=== PATIENT | male | born 1975 | race African-American/Black ===

== ENCOUNTER 2016-07-24 10:46 | Emergency (ER) | payer BC ==
[~2016-07-24] VITALS: Ht 190.5 cm; Wt 113.6 kg
[~2016-07-24 10:46] MED LIST: ALBUTEROL0.83 MG/ML IH; DULERA1 ARO IH; LORTAB 5/500 501 TAB PO; NO HOME MEDICATIONS; NORCO 325 MG-51 TAB PO; PREDNISONE10 MG PO; PREDNISONE20 MG PO; PROAIR HFA0.09 MG/AC IH; PROMETHAZINE12.5 M5 PO; PROVENTIL0.09 MG/A1 IH; ZITHROMAX 250M250 MG PO
[2016-07-24 10:48] VITALS: TEMP 97.9
[2016-07-24] MEDS ORDERED: IMITREX 5MGNAS NS (11:55)
[2016-07-24] MEDS ORDERED: VERELAN PM100 MG PO (11:55)
[2016-07-24 14:45] VITALS: BP 124/73; PULSE 62
== END 2016-07-24 14:47 | disposition home or self-care (01) ==
LOC: COL.ER 10:46
DX: G44.009 Cluster headache syndrome, unspecified, not intractable (principal)
CPT/HCPCS: J1100; J1170; J1200; J2550; J3030; J7030

== ENCOUNTER 2016-07-25 23:31 | Emergency (ER) | payer BC ==
[~2016-07-25] VITALS: Ht 190.5 cm; Wt 115.9 kg
[~2016-07-25 23:31] MED LIST changes: +IMITREX 5MGNAS NS; +VERELAN PM100 MG PO
[2016-07-25 23:34] VITALS: TEMP 97.5
[2016-07-26] MEDS ORDERED: FIORICET 325 MG1 TA1 PO (02:31)
[2016-07-26 03:00] VITALS: BP 117/87; PULSE 55
== END 2016-07-26 03:07 | disposition home or self-care (01) ==
LOC: COL.ER 23:31
DX: R51 Headache (principal); R11.2 Nausea with vomiting, unspecified
CPT/HCPCS: J1170; J1200; J2405; J2765; J3030; J7030

== ENCOUNTER 2016-08-04 06:24 | Emergency (ER) | payer BC ==
[~2016-08-04] VITALS: Ht 190.5 cm; Wt 120.0 kg
[~2016-08-04 06:24] MED LIST changes: +FIORICET 325 MG1 TA1 PO
[2016-08-04] MEDS ORDERED: VERELAN240 MG PO (06:33)
[2016-08-04 07:51] LABS: BASO % 0.2 % (0.0-2.0); EOS % 0.2 % (0-4.0); GRAN # 14.5 (1.4-6.5); GRAN % 87.1 % (42.2-75.2); HEMATOCRIT 42.2 % (42.0-52.0); HEMOGLOBIN 13.4 g/dl (13.5-18.0); LYMPH # 1.5 (1.2-3.4); LYMPH % 8.9 % (20.0-51.0); MEAN CELL VOLUME 85 fl (80.0-100.0); MEAN CORPUSCULAR HEMOGLOBIN 27 pg (27.0-31.0); MEAN CORPUSCULAR HGB CONC 32 g/dl (33.0-37.0); MEAN PLATELET VOLUME 10.8 fl (7.4-10.4); MONO # 0.5 (0.1-0.6); MONO % 3.2 % (1.7-9.3); PLATELET COUNT 212 K/mm3 (130-400); RED BLOOD COUNT 4.97 M/mm3 (4.20-5.60); REDCELL DISTRIBUTION WIDTH-CV 13.5 % (11.5-14.5); WHITE BLOOD COUNT 16.7 K/mm3 (4.8-10.8)
[2016-08-04 08:07] LABS: CALCIUM 10.1 mg/dL (8.4-10.2); CREATININE, serum 1.02 mg/dL (0.66-1.25); POTASSIUM 4.3 mmol/L (3.4-5.0)
[2016-08-04] MEDS ORDERED: FIORICET 325 MG1 TA1 PO (08:57)
[2016-08-04 09:14] VITALS: BP 108/73; PULSE 53
== END 2016-08-04 09:15 | disposition home or self-care (01) ==
LOC: COL.ER 06:24
PROVIDERS: Physician Assistant
DX: G44.001 Cluster headache syndrome, unspecified, intractable (principal); G43.819 Other migraine, intractable, without status migrainosus; F17.210 Nicotine dependence, cigarettes, uncomplicated
CPT/HCPCS: J2300; J2405; J2765; J3030; J7030

== ENCOUNTER 2016-12-04 18:02 | Emergency (ER) | payer BC ==
[~2016-12-04] VITALS: Ht 190.5 cm; Wt 113.6 kg
[~2016-12-04 18:02] MED LIST changes: +VERELAN240 MG PO
[2016-12-04 18:04] VITALS: BP 133/75; TEMP 97.5
[2016-12-04 18:41] LABS: BASO % 0.3 % (0.0-2.0); EOS # 0.5 (0.0-0.7); EOS % 3.8 % (0-4.0); GRAN # 8.7 (1.4-6.5); GRAN % 69.8 % (42.2-75.2); HEMATOCRIT 41.9 % (42.0-52.0); HEMOGLOBIN 13.3 g/dl (13.5-18.0); LYMPH # 1.9 (1.2-3.4); LYMPH % 15.1 % (20.0-51.0); MEAN CELL VOLUME 85 fl (80.0-100.0); MEAN CORPUSCULAR HEMOGLOBIN 27 pg (27.0-31.0); MEAN CORPUSCULAR HGB CONC 32 g/dl (33.0-37.0); MEAN PLATELET VOLUME 10.4 fl (7.4-10.4); MONO # 1.3 (0.1-0.6); MONO % 10.7 % (1.7-9.3); PLATELET COUNT 211 K/mm3 (130-400); RED BLOOD COUNT 4.92 M/mm3 (4.20-5.60); REDCELL DISTRIBUTION WIDTH-CV 13.1 % (11.5-14.5); WHITE BLOOD COUNT 12.5 K/mm3 (4.8-10.8)
[2016-12-04 19:54] LABS: ADJUSTED CALCIUM 9.3 mg/dL (8.4-10.2); ALBUMIN 4.1 gm/dL (3.5-5.0); BILIRUBIN,TOTAL 0.7 mg/dL (0.0-1.0); CALCIUM 9.4 mg/dL (8.4-10.2); CREATININE, serum 1.04 mg/dL (0.66-1.25); TOTAL PROTEIN 7.4 gm/dL (6.4-8.2)
[2016-12-04] MEDS ORDERED: PREDNISONE20 MG PO (20:17)
[2016-12-04 20:35] VITALS: PULSE 86
== END 2016-12-04 20:35 | disposition home or self-care (01) ==
LOC: COL.ER 18:02
PROVIDERS: Family Medicine
DX: J45.901 Unspecified asthma with (acute) exacerbation (principal)
CPT/HCPCS: J7512

== ENCOUNTER 2016-12-19 18:25 | Emergency (ER) | payer BC ==
[~2016-12-19] VITALS: Ht 190.5 cm; Wt 115.9 kg
[2016-12-19 18:27] VITALS: BP 146/86; PULSE 80; TEMP 97.6
== END 2016-12-19 20:07 | disposition home or self-care (01) ==
LOC: COL.ER 18:25
DX: J45.909 Unspecified asthma, uncomplicated (principal); F17.210 Nicotine dependence, cigarettes, uncomplicated
CPT/HCPCS: J1100

== ENCOUNTER 2017-04-08 12:44 | Emergency (ER) | payer BC ==
[~2017-04-08] VITALS: Ht 190.5 cm; Wt 113.6 kg
[2017-04-08 12:47] VITALS: BP 134/78; PULSE 60; TEMP 98
== END 2017-04-08 13:32 | disposition left against medical advice (07) ==
LOC: COL.ER 12:44
DX: M25.511 Pain in right shoulder (principal)

== ENCOUNTER 2017-04-10 09:16 | Emergency (ER) | payer BC ==
[~2017-04-10] VITALS: Ht 190.5 cm; Wt 113.6 kg
[2017-04-10 09:19] VITALS: BP 141/91; TEMP 98.2
[2017-04-10] MEDS ORDERED: ZANAFLEX CAPSULE2 MG PO (09:41)
[2017-04-10 10:28] VITALS: PULSE 53
== END 2017-04-10 10:28 | disposition home or self-care (01) ==
LOC: COL.ER 09:16
DX: M62.838 Other muscle spasm (principal); X50.0XXA Overexertion from strenuous movement or load, initial encounter
CPT/HCPCS: J2360

== ENCOUNTER 2017-06-24 07:51 | Emergency (ER) | payer BC ==
[~2017-06-24] VITALS: Ht 190.5 cm; Wt 113.6 kg
[~2017-06-24 07:51] MED LIST changes: +ZANAFLEX CAPSULE2 MG PO
[2017-06-24 07:54] VITALS: TEMP 98.6
[2017-06-24 08:53] LABS: BASO % 0.2 % (0.0-2.0); EOS # 0.2 (0.0-0.7); EOS % 1.4 % (0-4.0); GRAN # 8.9 (1.4-6.5); GRAN % 70.6 % (42.2-75.2); HEMATOCRIT 48.1 % (42.0-52.0); HEMOGLOBIN 15.2 g/dl (13.5-18.0); LYMPH # 2.4 (1.2-3.4); LYMPH % 18.6 % (20.0-51.0); MEAN CELL VOLUME 85 fl (80.0-100.0); MEAN CORPUSCULAR HEMOGLOBIN 27 pg (27.0-31.0); MEAN CORPUSCULAR HGB CONC 32 g/dl (33.0-37.0); MEAN PLATELET VOLUME 10.3 fl (7.4-10.4); MONO # 1.1 (0.1-0.6); MONO % 8.8 % (1.7-9.3); PLATELET COUNT 246 K/mm3 (130-400); RED BLOOD COUNT 5.67 M/mm3 (4.20-5.60); WHITE BLOOD COUNT 12.7 K/mm3 (4.8-10.8)
[2017-06-24 09:11] LABS: ADJUSTED CALCIUM 9.2 mg/dL (8.4-10.2); ALANINE AMINOTRANSFERASE 41 U/L (21-72); ALBUMIN 5.1 gm/dL (3.5-5.0); ALKALINE PHOSPHATASE 103 U/L (50-136); ANION GAP 12 mmol/L (7-16); BILIRUBIN,TOTAL 0.7 mg/dL (0.0-1.0); BLOOD UREA NITROGEN 12 mg/dL (9-20); CALCIUM 10.1 mg/dL (8.4-10.2); CARBON DIOXIDE 22 mmol/L (22-30); CHLORIDE 105 mmol/L (98-107); CREATININE, serum 1.19 mg/dL (0.66-1.25); GLUCOSE 138 mg/dL (74-106); SODIUM 139 mmol/L (137-145); TOTAL PROTEIN 9.2 gm/dL (6.4-8.2)
[2017-06-24 09:14] LABS: C-REACTIVE PROTEIN < 0.5 mg/dL (0.0-0.9)
[2017-06-24 09:22] LABS: TROPONIN-I < 0.012 ng/mL (0.000-0.034)
[2017-06-24] MEDS ORDERED: DOXYCYCLINE 10100 MG PO (09:36)
[2017-06-24 09:56] VITALS: BP 124/91; PULSE 55
== END 2017-06-24 09:58 | disposition home or self-care (01) ==
LOC: COL.ER 07:51
PROVIDERS: Physician Assistant
DX: L73.2 Hidradenitis suppurativa (principal); R07.89 Other chest pain; R20.2 Paresthesia of skin; J45.909 Unspecified asthma, uncomplicated; G43.909 Migraine, unspecified, not intractable, without status migrainosus; F17.210 Nicotine dependence, cigarettes, uncomplicated; Z98.890 Other specified postprocedural states

== ENCOUNTER 2017-07-18 08:50 | Emergency (ER) | payer BC ==
[~2017-07-18] VITALS: Ht 190.5 cm; Wt 113.6 kg
[~2017-07-18 08:50] MED LIST changes: +DOXYCYCLINE 10100 MG PO
[2017-07-18 08:52] VITALS: TEMP 98.5
[2017-07-18] MEDS ORDERED: PREDNISONE20 MG PO (10:02)
[2017-07-18] MEDS ORDERED: PROAIR HFA0.09 MG/AC IH (10:02)
[2017-07-18] MEDS ORDERED: 00186-0372-20 IH (10:02)
[2017-07-18 10:36] VITALS: BP 121/65; PULSE 63
== END 2017-07-18 10:37 | disposition home or self-care (01) ==
LOC: COL.ER 08:50
DX: J45.901 Unspecified asthma with (acute) exacerbation (principal)
CPT/HCPCS: J7512

== ENCOUNTER 2017-08-02 09:00 | Emergency (ER) | payer BC ==
[~2017-08-02] VITALS: Ht 190.5 cm; Wt 113.6 kg
[~2017-08-02 09:00] MED LIST changes: +00186-0372-20 IH
[2017-08-02 09:08] VITALS: BP 130/76
[2017-08-02 09:43] LABS: BASO % 0.3 % (0.0-2.0); EOS # 0.2 (0.0-0.7); EOS % 1.8 % (0-4.0); GRAN # 9.4 (1.4-6.5); GRAN % 72.9 % (42.2-75.2); HEMATOCRIT 41.8 % (42.0-52.0); HEMOGLOBIN 13.3 g/dl (13.5-18.0); LYMPH # 2.2 (1.2-3.4); LYMPH % 17.3 % (20.0-51.0); MEAN CELL VOLUME 86 fl (80.0-100.0); MEAN CORPUSCULAR HEMOGLOBIN 27 pg (27.0-31.0); MEAN CORPUSCULAR HGB CONC 32 g/dl (33.0-37.0); MEAN PLATELET VOLUME 10.1 fl (7.4-10.4); MONO % 7.4 % (1.7-9.3); PLATELET COUNT 198 K/mm3 (130-400); RED BLOOD COUNT 4.88 M/mm3 (4.20-5.60); REDCELL DISTRIBUTION WIDTH-CV 13.5 % (11.5-14.5)
[2017-08-02] MEDS ORDERED: CLEOCIN HCL300 MG PO (09:55)
[2017-08-02 10:05] LABS: ERYTHROCYTE SEDIMENTATION RATE 2 mm/hr (0-15)
[2017-08-02 10:27] VITALS: PULSE 73; TEMP 97.8
== END 2017-08-02 10:28 | disposition home or self-care (01) ==
LOC: COL.ER 09:00
PROVIDERS: Physician Assistant
DX: L03.116 Cellulitis of left lower limb (principal); J45.909 Unspecified asthma, uncomplicated; F17.210 Nicotine dependence, cigarettes, uncomplicated

== ENCOUNTER 2017-10-16 21:38 | Emergency (ER) | payer SELFPAY ==
[~2017-10-16] VITALS: Ht 188 cm; Wt 115.9 kg
[~2017-10-16 21:38] MED LIST changes: +CLEOCIN HCL300 MG PO
[2017-10-16 21:44] VITALS: BP 124/76; TEMP 99.8
[2017-10-16] MEDS ORDERED: PREDNISONE20 MG PO (21:56)
[2017-10-16 22:42] VITALS: PULSE 86
== END 2017-10-16 22:42 | disposition home or self-care (01) ==
LOC: COL.ER 21:38
DX: J45.901 Unspecified asthma with (acute) exacerbation (principal); F17.210 Nicotine dependence, cigarettes, uncomplicated
CPT/HCPCS: J7512

== ENCOUNTER 2018-03-09 11:51 | Emergency (ER) | payer SELFPAY ==
[~2018-03-09] VITALS: Ht 190.5 cm; Wt 113.6 kg
[2018-03-09 11:58] VITALS: BP 147/84; PULSE 84; TEMP 97.7
[2018-03-09] MEDS ORDERED: ZOVIRAX800 MG PO (13:18)
[2018-03-09] MEDS ORDERED: NORCO 325 MG-51 TAB PO (13:18)
[2018-03-09] MEDS ORDERED: ATHLETE'S FOOT1% TP (13:41)
== END 2018-03-09 13:37 | disposition home or self-care (01) ==
LOC: COL.ER 11:51
DX: B02.9 Zoster without complications (principal)

== ENCOUNTER 2018-03-10 22:47 | Emergency (ER) | payer SELFPAY ==
[~2018-03-10] VITALS: Ht 190.5 cm; Wt 113.6 kg
[~2018-03-10 22:47] MED LIST changes: +ATHLETE'S FOOT1% TP; +ZOVIRAX800 MG PO
[2018-03-10 22:53] VITALS: BP 139/86; TEMP 97.8
[2018-03-11 01:52] VITALS: PULSE 73
== END 2018-03-11 01:50 | disposition home or self-care (01) ==
LOC: COL.ER 22:47
DX: B02.9 Zoster without complications (principal); J45.909 Unspecified asthma, uncomplicated; F17.210 Nicotine dependence, cigarettes, uncomplicated

== ENCOUNTER 2018-12-11 18:27 | Emergency (ER) | payer SELFPAY ==
[~2018-12-11] VITALS: Ht 188 cm; Wt 113.6 kg
[2018-12-11 18:34] VITALS: BP 135/75; TEMP 98.2
[2018-12-11 19:28] VITALS: PULSE 88
== END 2018-12-11 19:25 | disposition home or self-care (01) ==
LOC: COL.ER 18:27
DX: H10.9 Unspecified conjunctivitis (principal); J45.909 Unspecified asthma, uncomplicated

== ENCOUNTER 2019-06-26 13:09 | Emergency (ER) | payer SELFPAY ==
[~2019-06-26] VITALS: Ht 188 cm; Wt 113.6 kg
[2019-06-26 13:39] VITALS: BP 121/71; TEMP 97
[2019-06-26] MEDS ORDERED: ZYRTEC 10MG10 MG PO (14:30)
[2019-06-26] MEDS ORDERED: POLYMYXIN B/TRIMETH OD (15:04)
[2019-06-26 15:36] VITALS: PULSE 82
== END 2019-06-26 15:37 | disposition home or self-care (01) ==
LOC: COL.ER 13:09
DX: B99.9 Unspecified infectious disease (principal); H10.89 Other conjunctivitis

== ENCOUNTER 2019-07-10 21:49 | Emergency (ER) | payer SELFPAY ==
[~2019-07-10] VITALS: Ht 188 cm; Wt 116.4 kg
[~2019-07-10 21:49] MED LIST changes: +POLYMYXIN B/TRIMETH OD; +ZYRTEC 10MG10 MG PO
[2019-07-10 22:38] VITALS: BP 133/80; PULSE 67; TEMP 98
== END 2019-07-11 00:40 | disposition left against medical advice (07) ==
LOC: COL.ER 21:49
DX: S99.922A Unspecified injury of left foot, initial encounter (principal); W22.8XXA Striking against or struck by other objects, initial encounter

== ENCOUNTER 2019-07-11 07:39 | Emergency (ER) | payer SELFPAY ==
[~2019-07-11] VITALS: Ht 188 cm; Wt 118.2 kg
[2019-07-11 07:53] VITALS: BP 143/92; TEMP 98.2
[2019-07-11 09:01] VITALS: PULSE 66
== END 2019-07-11 09:01 | disposition home or self-care (01) ==
LOC: COL.ER 07:39
DX: S90.32XA Contusion of left foot, initial encounter (principal); F17.210 Nicotine dependence, cigarettes, uncomplicated; Z88.6 Allergy status to analgesic agent; W22.09XA Striking against other stationary object, initial encounter; Y92.008 Other place in unspecified non-institutional (private) residence as the place of occurrence of the external cause

== ENCOUNTER 2019-07-15 16:28 | Emergency (ER) | payer SELFPAY ==
[~2019-07-15] VITALS: Ht 188 cm; Wt 118.2 kg
[2019-07-15 18:54] LABS: BASO % 0.3 % (0.0-2.0); EOS # 0.3 (0.0-0.7); EOS % 2.2 % (0-4.0); GRAN % 58.9 % (42.2-75.2); HEMATOCRIT 45.3 % (42.0-52.0); HEMOGLOBIN 14.2 g/dl (13.5-18.0); LYMPH # 3.2 (1.2-3.4); LYMPH % 27.3 % (20.0-51.0); MEAN CELL VOLUME 87 fl (80.0-100.0); MEAN CORPUSCULAR HEMOGLOBIN 27 pg (27.0-31.0); MEAN CORPUSCULAR HGB CONC 31 g/dl (33.0-37.0); MEAN PLATELET VOLUME 10.2 fl (7.4-10.4); MONO # 1.3 (0.1-0.6); MONO % 11.1 % (1.7-9.3); PLATELET COUNT 216 K/mm3 (130-400); RED BLOOD COUNT 5.19 M/mm3 (4.20-5.60); REDCELL DISTRIBUTION WIDTH-CV 13.5 % (11.5-14.5)
[2019-07-15 19:10] LABS: ALBUMIN 4.5 gm/dL (3.5-5.0); BILIRUBIN,TOTAL 0.3 mg/dL (0.0-1.0); C-REACTIVE PROTEIN 1.1 mg/dL (0.0-0.9); CALCIUM 9.4 mg/dL (8.4-10.2); CREATININE, serum 1.08 (0.66-1.25); POTASSIUM 4.4 mmol/L (3.4-5.0); TOTAL PROTEIN 8.3 gm/dL (6.4-8.2); URIC ACID 7.4 mg/dL (3.5-8.5)
[2019-07-15] MEDS ORDERED: CEPHALEXIN500 M1 PO (19:30)
[2019-07-15 19:55] VITALS: BP 128/68; PULSE 72; TEMP 98.7
== END 2019-07-15 19:55 | disposition home or self-care (01) ==
LOC: COL.ER 16:28
PROVIDERS: Physician Assistant
DX: S90.32XA Contusion of left foot, initial encounter (principal); L03.116 Cellulitis of left lower limb; F17.210 Nicotine dependence, cigarettes, uncomplicated; W22.8XXA Striking against or struck by other objects, initial encounter; Y92.009 Unspecified place in unspecified non-institutional (private) residence as the place of occurrence of the external cause
CPT/HCPCS: J0696

== ENCOUNTER 2019-12-05 22:48 | Emergency (ER) | payer SELFPAY ==
[~2019-12-05] VITALS: Ht 188 cm; Wt 118.2 kg
[~2019-12-05 22:48] MED LIST changes: +CEPHALEXIN500 M1 PO
[2019-12-05] MEDS ORDERED: NORCO 325 MG-51 TAB PO (23:20)
[2019-12-05 23:42] VITALS: BP 132/70; PULSE 76; TEMP 98
== END 2019-12-05 23:30 | disposition home or self-care (01) ==
LOC: COL.ER 22:48
DX: S92.352A Displaced fracture of fifth metatarsal bone, left foot, initial encounter for closed fracture (principal); W01.0XXA Fall on same level from slipping, tripping and stumbling without subsequent striking against object, initial encounter; Y92.009 Unspecified place in unspecified non-institutional (private) residence as the place of occurrence of the external cause
CPT/HCPCS: Q4041

== ENCOUNTER 2020-04-09 20:34 | Emergency (ER) | payer SELFPAY ==
[~2020-04-09] VITALS: Ht 188 cm; Wt 118.2 kg
[2020-04-09 20:42] VITALS: BP 128/79; TEMP 97.2
[2020-04-09 21:07] VITALS: PULSE 64
== END 2020-04-09 21:15 | disposition home or self-care (01) ==
LOC: COL.ER 20:34
DX: J01.80 Other acute sinusitis (principal); F17.210 Nicotine dependence, cigarettes, uncomplicated; Z88.6 Allergy status to analgesic agent

== ENCOUNTER 2020-06-05 22:23 | Emergency (ER) | payer SELFPAY ==
[~2020-06-05] VITALS: Ht 188 cm; Wt 115.9 kg
[2020-06-06] MEDS ORDERED: FLAGYL500 MG PO (00:16)
[2020-06-06 00:24] LABS: STREP SCREEN NEGATIVE
[2020-06-06 01:14] VITALS: BP 114/76; PULSE 60; TEMP 97.4
== END 2020-06-06 01:17 | disposition home or self-care (01) ==
LOC: COL.ER 22:23
PROVIDERS: Nurse Practitioner
DX: J03.90 Acute tonsillitis, unspecified (principal); Z20.2 Contact with and (suspected) exposure to infections with a predominantly sexual mode of transmission; F17.200 Nicotine dependence, unspecified, uncomplicated; Z20.828 Contact with and (suspected) exposure to other viral communicable diseases; Z88.6 Allergy status to analgesic agent
CPT/HCPCS: J8540

== ENCOUNTER 2020-06-22 12:17 | Emergency (ER) | payer SELFPAY ==
[~2020-06-22] VITALS: Ht 190.5 cm; Wt 106.8 kg
[~2020-06-22 12:17] MED LIST changes: +FLAGYL500 MG PO
[2020-06-22 12:28] VITALS: PULSE 78; TEMP 97
[2020-06-22] MEDS ORDERED: PROAIR HFA0.09 MG/AC IH (12:31)
[2020-06-22] MEDS ORDERED: PREDNISONE20 MG PO ×2 (12:57)
[2020-06-22] MEDS ORDERED: AKTOB 5 ML5 ML OP (14:15)
[2020-06-22 14:28] VITALS: BP 118/85
== END 2020-06-22 14:28 | disposition home or self-care (01) ==
LOC: COL.ER 12:17
DX: H18.821 Corneal disorder due to contact lens, right eye (principal); J45.909 Unspecified asthma, uncomplicated; Z88.6 Allergy status to analgesic agent
CPT/HCPCS: J1100; J1200

== ENCOUNTER 2020-06-23 11:05 | Emergency (ER) | payer SELFPAY ==
[~2020-06-23] VITALS: Ht 190.5 cm; Wt 117.3 kg
[~2020-06-23 11:05] MED LIST changes: +AKTOB 5 ML5 ML OP
[2020-06-23 11:48] VITALS: BP 145/87; PULSE 78; TEMP 97.3
== END 2020-06-23 13:34 | disposition home or self-care (01) ==
LOC: COL.ER 11:05
DX: H18.821 Corneal disorder due to contact lens, right eye (principal); F17.210 Nicotine dependence, cigarettes, uncomplicated; Z88.6 Allergy status to analgesic agent

== ENCOUNTER 2020-07-29 11:58 | Emergency (ER) | payer SELFPAY ==
[~2020-07-29] VITALS: Ht 190.5 cm; Wt 113.6 kg
[2020-07-29 12:26] VITALS: BP 109/82; TEMP 99.2
[2020-07-29 14:07] VITALS: PULSE 84
== END 2020-07-29 14:07 | disposition home or self-care (01) ==
LOC: COL.ER 11:58
DX: U07.1 COVID-19 (principal); Z79.1 Long term (current) use of non-steroidal anti-inflammatories (NSAID)

== ENCOUNTER 2020-12-31 11:54 | Emergency (ER) | payer SELFPAY ==
[~2020-12-31] VITALS: Ht 190.5 cm; Wt 113.6 kg
[2020-12-31 12:08] VITALS: TEMP 97.8
[2020-12-31] MEDS ORDERED: PREDNISONE20 MG PO (12:51)
[2020-12-31 12:57] VITALS: BP 131/80; PULSE 78
== END 2020-12-31 12:57 | disposition home or self-care (01) ==
LOC: COL.ER 11:54
DX: J30.81 Allergic rhinitis due to animal (cat) (dog) hair and dander (principal); F17.290 Nicotine dependence, other tobacco product, uncomplicated

== ENCOUNTER 2021-02-03 12:15 | Emergency (ER) | payer SELFPAY ==
[~2021-02-03] VITALS: Ht 190.5 cm; Wt 113.6 kg
[2021-02-03 12:30] VITALS: BP 149/100; TEMP 98.5
[2021-02-03] MEDS ORDERED: PREDNISONE20 MG PO (13:07)
[2021-02-03] MEDS ORDERED: EPIPEN 2-PAK1 MG/ML IM (13:10)
[2021-02-03 13:23] VITALS: PULSE 76
== END 2021-02-03 13:23 | disposition home or self-care (01) ==
LOC: COL.ER 12:15
DX: T78.40XA Allergy, unspecified, initial encounter (principal); J45.909 Unspecified asthma, uncomplicated; F17.210 Nicotine dependence, cigarettes, uncomplicated; Z79.899 Other long term (current) drug therapy; X58.XXXA Exposure to other specified factors, initial encounter

== ENCOUNTER 2021-02-14 17:23 | Emergency (ER) | payer SELFPAY ==
[~2021-02-14] VITALS: Ht 190.5 cm; Wt 113.6 kg
[~2021-02-14 17:23] MED LIST changes: +EPIPEN 2-PAK1 MG/ML IM
[2021-02-14 17:48] VITALS: TEMP 97.2
[2021-02-14] MEDS ORDERED: PRILOTC (18:57)
[2021-02-14 19:06] LABS: COLLECTION METHOD CLEAN CATCH
[2021-02-14 19:09] LABS: BASO # 0.1 (0.0-0.2); BASO % 0.3 % (0.0-2.0); EOS # 0.5 (0.0-0.7); EOS % 2.5 % (0-4.0); GRAN # 11.8 (1.4-6.5); GRAN % 64.9 % (42.2-75.2); HEMATOCRIT 45.9 % (42.0-52.0); HEMOGLOBIN 14.5 g/dl (13.5-18.0); LYMPH # 4.5 (1.2-3.4); LYMPH % 24.8 % (20.0-51.0); MEAN CELL VOLUME 87 fl (80.0-100.0); MEAN CORPUSCULAR HEMOGLOBIN 28 pg (27.0-31.0); MEAN CORPUSCULAR HGB CONC 32 g/dl (33.0-37.0); MEAN PLATELET VOLUME 10.2 fl (7.4-10.4); MONO # 1.3 (0.1-0.6); PLATELET COUNT 236 K/mm3 (130-400); RED BLOOD COUNT 5.28 M/mm3 (4.20-5.60)
[2021-02-14 19:12] LABS: PH 7 (5-8); SQUAMOUS EPITHELIAL 0-2 /hpf; URINE APPEARANCE Clear; URINE BACTERIA None Seen /hpf; URINE BILIRUBIN Negative (NEGATIVE); URINE BLOOD Negative (NEGATIVE); URINE COLOR Yellow; URINE GLUCOSE Negative (NEGATIVE); URINE KETONE Negative (NEGATIVE); URINE LEUKOCYTE ESTERASE Trace (NEGATIVE); URINE NITRATE Negative (NEGATIVE); URINE PROTEIN(semi-quant) 1+ (NEGATIVE); URINE RBC 0-2 /hpf
[2021-02-14 19:18] LABS: ALBUMIN 4.2 gm/dL (3.5-5.0); BILIRUBIN,TOTAL 0.5 mg/dL (0.0-1.0); C-REACTIVE PROTEIN 0.6 mg/dL (0.0-0.9); CALCIUM 9.4 mg/dL (8.4-10.2); CREATININE, serum 0.99 (0.66-1.25); POTASSIUM 3.5 mmol/L (3.4-5.0); TOTAL PROTEIN 7.8 gm/dL (6.4-8.2)
[2021-02-14] MEDS ORDERED: PROTONIX 40MG T40 MG PO (21:59)
[2021-02-14 22:10] VITALS: BP 148/100; PULSE 83
== END 2021-02-14 22:13 | disposition home or self-care (01) ==
LOC: COL.ER 17:23
PROVIDERS: Nurse Practitioner Primary Care
DX: R10.13 Epigastric pain (principal); I10 Essential (primary) hypertension; F17.210 Nicotine dependence, cigarettes, uncomplicated; K21.9 Gastro-esophageal reflux disease without esophagitis; Z79.899 Other long term (current) drug therapy
CPT/HCPCS: Q9967

== ENCOUNTER 2021-07-21 11:34 | Emergency (ER) | payer SELFPAY ==
[~2021-07-21] VITALS: Ht 190.5 cm; Wt 113.6 kg
[~2021-07-21 11:34] MED LIST changes: +PRILOTC; +PROTONIX 40MG T40 MG PO
[2021-07-21 12:28] VITALS: BP 139/107; PULSE 86; TEMP 97.5
== END 2021-07-21 12:28 | disposition home or self-care (01) ==
LOC: COL.ER 11:34
DX: U07.1 COVID-19 (principal); J45.909 Unspecified asthma, uncomplicated; Z79.899 Other long term (current) drug therapy

== ENCOUNTER 2022-03-26 21:56 | Emergency (ER) | payer SELFPAY ==
[~2022-03-26] VITALS: Ht 190.5 cm; Wt 115.9 kg
[2022-03-26] MEDS ORDERED: PREDNISONE20 MG PO (23:19)
[2022-03-26 23:28] VITALS: BP 139/89; PULSE 78; TEMP 98
== END 2022-03-26 23:28 | disposition home or self-care (01) ==
LOC: COL.ER 21:56
DX: J45.901 Unspecified asthma with (acute) exacerbation (principal); F17.210 Nicotine dependence, cigarettes, uncomplicated; Z28.310 Unvaccinated for COVID-19
CPT/HCPCS: J7512

== ENCOUNTER 2022-08-23 00:14 | Emergency (ER) | payer SELFPAY ==
[~2022-08-23] VITALS: Ht 188 cm; Wt 113.6 kg
[2022-08-23 00:39] VITALS: BP 207/90; PULSE 89; TEMP 97.9
== END 2022-08-23 01:40 | disposition left against medical advice (07) ==
LOC: COL.ER 00:14
DX: H57.10 Ocular pain, unspecified eye (principal); Z28.310 Unvaccinated for COVID-19

== ENCOUNTER 2022-10-10 22:42 | Emergency (ER) | payer SELFPAY ==
[~2022-10-10] VITALS: Ht 188 cm; Wt 113.6 kg
[2022-10-10 22:49] VITALS: BP 138/84; TEMP 98.3
[2022-10-10] MEDS ORDERED: ILOTYCIN5 MG/GM OP (23:20)
[2022-10-10 23:39] VITALS: PULSE 89
== END 2022-10-10 23:39 | disposition home or self-care (01) ==
LOC: COL.ER 22:42
DX: S05.01XA Injury of conjunctiva and corneal abrasion without foreign body, right eye, initial encounter (principal); Z28.310 Unvaccinated for COVID-19; W45.0XXA Nail entering through skin, initial encounter

== ENCOUNTER 2022-12-12 18:47 | Emergency (ER) | payer SELFPAY ==
[~2022-12-12] VITALS: Ht 188 cm; Wt 97.7 kg
[~2022-12-12 18:47] MED LIST changes: +ILOTYCIN5 MG/GM OP
[2022-12-12 18:56] VITALS: TEMP 97.8
[2022-12-12] MEDS ORDERED: CRUTCHES MC (19:31)
[2022-12-12] MEDS ORDERED: NORCO 325 MG-51 TAB PO (19:31)
[2022-12-12 20:03] VITALS: BP 140/72; PULSE 70
== END 2022-12-12 20:04 | disposition home or self-care (01) ==
LOC: COL.ER 18:47
DX: S86.001A Unspecified injury of right Achilles tendon, initial encounter (principal); Z28.310 Unvaccinated for COVID-19; X50.9XXA Other and unspecified overexertion or strenuous movements or postures, initial encounter; Y93.55 Activity, bike riding

== ENCOUNTER 2023-07-30 10:28 | Emergency (ER) | payer SELFPAY ==
[~2023-07-30] VITALS: Ht 190.5 cm; Wt 113.6 kg
[~2023-07-30 10:28] MED LIST changes: +CRUTCHES MC
[2023-07-30 10:37] VITALS: BP 151/92; TEMP 97.4
[2023-07-30 11:12] LABS: HEMATOCRIT 44.1 % (42.0-52.0); HEMOGLOBIN 14.2 g/dl (13.5-18.0); MEAN CELL VOLUME 85 fl (80.0-100.0); MEAN CORPUSCULAR HEMOGLOBIN 27 pg (27-31); MEAN CORPUSCULAR HGB CONC 32 g/dl (33.0-37.0); MEAN PLATELET VOLUME 10.1 fl (7.4-10.4); PLATELET COUNT 207 K/mm3 (130-400); RED BLOOD COUNT 5.19 M/mm3 (4.20-5.60); REDCELL DISTRIBUTION WIDTH-CV 13.8 % (11.5-14.5)
[2023-07-30 11:30] LABS: ALBUMIN 3.8 gm/dL (3.5-5.0); BILIRUBIN,TOTAL 0.9 mg/dL (0.2-1.2); CALCIUM 9.1 mg/dL (8.4-10.2); CREATININE, serum 1.08 mg/dL (0.72-1.25); POTASSIUM 3.9 mmol/L (3.5-4.5); TOTAL PROTEIN 7.8 gm/dL (6.2-8.1)
[2023-07-30 11:45] LABS: BAND 1 % (0-10); LYMPHOCYTE 4 % (20.0-51.0); NEUTROPHILS 83 % (42.0-75.2); PLATELET ESTIMATE NORMAL (NORMAL)
[2023-07-30] MEDS ORDERED: CEPHALEXIN500 M1 PO (12:16)
[2023-07-30 12:30] VITALS: PULSE 76
== END 2023-07-30 12:30 | disposition home or self-care (01) ==
LOC: COL.ER 10:28
PROVIDERS: Family Medicine
DX: L03.116 Cellulitis of left lower limb (principal)